=== PATIENT | male | born 1990 | race Caucasian/White ===

== ENCOUNTER 2024-12-26 14:05 | Emergency (ER) | payer MEDICAID ==
[~2024-12-26] VITALS: Ht 180.3 cm; Wt 77.3 kg
[2024-12-26 14:14] VITALS: BP 131/75; PULSE 65; O2SAT 99
[2024-12-26] MEDS ORDERED: METR-159 PO ×2 (18:34→20:19)
[2024-12-26] MEDS ORDERED: IBUP-864 PO (18:34)
--- NOTE | 2024-12-26 18:34 | Physician Documentation ---
History of Present Illness ~ Chief Complaint: Testicular Pain Stated Complaint: POSS HERNIA Time Seen by MD: 18:12 HPI 34-year-old male with complaints of right groin/testicular pain for approximately 2 weeks. 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 Patient believes that potentially it started after lifting an ice chest. Patient has been closely monitoring and for the last couple of weeks and started to wear a jockstrap a couple days ago noticed more testicular swelling after wearing a jock strap and concerned. Patient has no history of hernias. No recent sexual contact await does have history of herpes simplex virus. Patient denies any difficulty urinating, discharge, dysuria urgency or frequency. Timing/Duration: weeks Quality/Severity: mild Radiation: groin, scrotal Activities at Onset: spontaneous Sexual [place] History: single partner Modifying Factors: Improves with movement, Improves with scrotal elevation, Improves with other (Obtain) Associated Symptoms: denies symptoms Penile Discharge: none History Of: no pertinent history Medication Reconciliation Scheduled Ibuprofen (Ibuprofen), 1 TAB PO Q8H Metronidazole* (Flagyl*), 1 TAB PO Q12H Discontinued Medications Ibuprofen (Ibu), 1 TAB PO Q8H Discontinued Reason: MD order Metronidazole* (Flagyl*), 1 TAB PO Q12H Discontinued Reason: MD order Past Medical History Past Medical History: No Pertinent History Past Surgical History: no surgical history Lives with: Spouse Lives In: Home Occupation: employed Review of Systems All Other Systems at this time: Reviewed and Negative Physical Exam Vital Signs: RN Vital Signs have been reviewed: Yes, Temperature: 97.8, Heart Rate: 65, Respiratory Rate: 16, BP: 131/75, Pulse Oximetry: 99, Weight: 77.270 Oxygen Flow Rate: 0 General Appearance: alert, WD/WN, no apparent distress Respiratory: lungs clear, normal breath sounds, no respiratory distress Chest: no accessory muscle use, chest non-tender Cardiolovascular: normal peripheral pulses, regular rate, rhythm, no edema Penile Discharge: none Glans: normal inspection; No: vesicles, red Foreskin: normal inspection; No: vesicles, swelling Shaft: normal inspection; No: vesicles, swelling Scrotum: normal inspection; No: red, swelling, mass, tender, other Epididymis: tender, other (Tender to the right epididymis more than left) Testicle: normal inspection Foreign Body: none Procedures Ultrasound Date: December 26, 2024 Ultrasound Comment Patient: BLANCA FARMER Medical Record: [id number] [facility] : 1990, Age: 34 Sex: Male Location: ER Patient Status: DEP ER Service Date/Time: 12/26/241913 Ordering Physician: JO ANN HUITRON NP Exam: US TESTIC/W/DUPLEX Procedure: US US TESTIC/W/DUPLEX [facility] Study Date and Requested Time: 12/26/2024 07:26 PM History: swelling and pain Comparison: None Technique: Multiple high-resolution grayscale images of scrotal contents obtained. Color and spectral Doppler used for evaluation of testicular blood flow. Findings: Right testicle measures 4.4 x 2.6 x 3 cm with homogenous echotexture and normal contours. Right epididymal head measures 1.04 cm with increased flow of the superior portion. Left testicle measures 4.3 x 2.7 x 3 cm with homogenous echotexture and normal contours. Left epididymal head measures 1.38 cm with increase of the superior portion. Normal testicular color and spectral Doppler flow bilaterally. No evidence of testicular torsion, mass, or hydrocele. Prominent vasculature seen superior to bilateral epididymis Impression: No evidence of testicular torsion, or hydrocele. Questionable epididymitis. Suggested bilateral varicoceles. Progress Results/Orders Results/Orders Orders - JO ANN HUITRON HOSPITAL PERSONNEL DIRECTOR [employer] (12/26/24 19:05) [facility] Test[facility]/W/Duplex (12/26/24 19:14) Completed Orders - JO ANN HUITRON HOSPITAL PERSONNEL DIRECTOR [facility]/W/Duplex (12/26/24 19:14) Vital Signs 12/26/24 12/26/24 12/26/24 14:14 18:36 20:21 Temp 97.8 97.8 Pulse 65 Resp 16 16 B/P (MAP) 131/75 Pulse Ox 99 O2 Flow Rate 0 Medical Decision Making Genital Diff Dx:Considerations: Include: Abscess, Epididymitis, Entrapment injury, Hydrocele, Testicular torsion, Urinary retention, Urethritis, UTI Departure Time of Disposition: 18:31 Disposition: 01 HOME / SELF CARE / HOMELESS Impression: Primary Impression: Epididymitis, right Additional Impression: Pain in testicle Condition: Stable Discharge Instructions: Epididymitis, Scrotal Swelling Additional Instructions: Antibiotics as prescribed as well as close monitoring. Okay to use ice and support. Referrals: NO PRIMARY CARE PROVIDER (PCP) Prescriptions Metronidazole* (Flagyl*) 500 Mg Tablet 1 TAB PO Q12H for 14 Days, #28 TAB Prov: JO ANN HUITRON HOSPITAL PERSONNEL DIRECTOR 12/26/24 Ibuprofen (Ibuprofen) 800 Mg Tablet 1 TAB PO Q8H for pain for 7 Days, #21 TAB 0 Refills Prov: JO ANN HUITRON HOSPITAL PERSONNEL DIRECTOR 12/26/24 Education Educated: Patient Educated regarding: diagnosis, treatment, need for follow up Signature Scribe Signature: No Scribe Attestation: The note accurately reflects work and decisions made by me.Jo Ann Huitron - [employer] F[employer]ING SPECIALIST 12/26/24 22:23 JO ANN HUITRON NP December 26, 2024 18:34
[2024-12-26 18:36] VITALS: RESP 16
[2024-12-26] MEDS ORDERED: IBUP-1986 PO (19:55)
[2024-12-26 20:21] VITALS: TEMP 97.8
--- NOTE | 2024-12-26 20:32 | RADIOLOGY REPORT ---
Procedure: US US TESTIC/W/DUPLEX [facility] Study Date and Requested Time: 12/26/2024 07:26 PM History: swelling and pain Comparison: None Technique: Multiple high-resolution grayscale images of scrotal contents obtained. Color and spectral Doppler used for evaluation of testicular blood flow. Findings: Right testicle measures 4.4 x 2.6 x 3 cm with homogenous echotexture and normal contours. Right epidi dymal head measures 1.04 cm with increased flow of the superior portion. Left testicle measures 4.3 x 2.7 x 3 cm with homogenous echotexture and normal contours. Left epididy mal head measures 1.38 cm with increase of the superior portion. Normal testicular color and spectral Doppler flow bilaterally. No evidence of testicular torsion, mas s, or hydrocele. Prominent vasculature seen superior to bilateral epididymis Impression: No evidence of testicular torsion, or hydrocele. Questionable epididymitis. Suggested bilateral varicoceles.
== END 2024-12-26 18:41 | disposition home or self-care (01) ==
LOC: ER 14:06
DX: N45.1 Epididymitis (principal); N50.811 Right testicular pain
CPT/HCPCS: 76870; 93976; 99284